=== PATIENT | female | born 1975 | race African-American/Black ===

== ENCOUNTER 2021-10-13 20:33 | Emergency (ER) | payer OTHER ==
[~2021-10-13] VITALS: Ht 167.6 cm; Wt 100.0 kg
[2021-10-13 20:35] VITALS: BP 168/104
[2021-10-14 00:14] LABS: BASOPHILS % 0.7 % (0.0-2.0); EOSINOPHILS % 2.2 % (0.0-5.0); HEMATOCRIT. 39.7 % (36.0-48.0); HEMOGLOBIN. 13.3 g/dL (12.0-16.0); LYMPHOCYTES % 44.7 % (20.0-50.0); MEAN CORPUSCULAR HEMOGLOBIN 27.9 pg (28.0-32.0); MEAN CORPUSCULAR VOLUME 83.7 fL (81.0-99.0); MEAN PLATELET VOLUME 8.7 fl (7.4-10.4); MONOCYTES % 8.4 % (2.0-8.0); PLATELET 291 x1000/uL (130-400); RED BLOOD CELL COUNT 4.75 mill/uL (4.2-5.4); RED CELL DISTRIBUTION WIDTH 13.2 % (11.6-14.6)
[2021-10-14 00:25] LABS: CHLORIDE 109 mEq/L (98-107)
== END 2021-10-14 03:00 | disposition left against medical advice (07) ==
LOC: ER 20:33
DX: R07.89 Other chest pain (principal); I10 Essential (primary) hypertension; Z98.890 Other specified postprocedural states
CPT/HCPCS: 36415; 71045; 80053; 83880; 84484; 85025; 93005; 99285